=== PATIENT | male | born 1995 | race Hispanic/Latino ===

== ENCOUNTER 2018-03-12 21:33 | Emergency (ER) | payer BC ==
[2018-03-12] MEDS ORDERED: KETOROLAC 30 MG/ML INJ ONE (22:28)
[2018-03-12] MEDS ORDERED: TETANUS & DIPHTHERIA TOX,ADULT 0.5 ML VIAL ONE (22:30)
--- NOTE | 2018-03-12 23:04 | EDPHYS ---
Physician Documentation [facility] Name: Carlos Aguirre Age: 22 yrs Sex: Male : 1995 Arrival Date: 03/12/2018 Time: 21:38 Bed 2 Private MD: ED Physician Rian Douglas HPI: 03/12 22:19 This 22 yrs old Male presents to ER via Ambulatory with complaints of Hand snw Pain. 22:19 The patient or guardian reports pain, swelling, tenderness. The complaints affect the snw dorsal aspect of proximal phalanx of right ring finger, dorsal aspect of proximal phalanx of right little finger and dorsum of right hand, MCP of right ring finger and MCP of right little finger. Context: The problem was sustained outdoors, resulted from using own fist to strike, a wall. Onset: The symptoms/episode began/occurred suddenly, 2 day(s) ago, and became persistent. Associated signs and symptoms: The patient has no apparent associated signs or symptoms. Severity of symptoms: At their worst the symptoms were moderate. The patient has not experienced similar symptoms in the past. The patient has not recently seen a physician. Historical: - Allergies: 21:47 No Known Allergies; aj1 - Home Meds: 21:47 None [Active]; aj1 - PMHx: 21:47 None; aj1 - PSHx: 21:47 None; aj1 - Immunization history:: Flu vaccine is not up to date. - Social history:: Smoking status: Patient uses tobacco products, smokes one pack cigarettes per day. - Ebola Screening: : Patient denies travel to an Ebola-affected area in the 21 days before illness onset. ROS: 22:19 Constitutional: Negative for fever, chills, and weight loss, Eyes: Negative for injury, snw pain, redness, and discharge, ENT: Negative for injury, pain, and discharge, Neck: Negative for injury, pain, and swelling, Cardiovascular: Negative for chest pain, palpitations, and edema, Respiratory: Negative for shortness of breath, cough, wheezing, and pleuritic chest pain, Abdomen/GI: Negative for abdominal pain, nausea, vomiting, diarrhea, and constipation, Back: Negative for injury and pain, : Negative for injury, bleeding, discharge, and swelling, Neuro: Negative for headache, weakness, numbness, tingling, and seizure. 22:19 MS/extremity: Positive for injury or acute deformity, decreased range of motion, pain, swelling, tenderness, of the right hand. 22:19 Skin: Positive for abrasion(s), of the right hand. Exam: 22:18 Constitutional: This is a well developed, well nourished patient who is awake, alert, snw and in no acute distress. Head/Face: Normocephalic, atraumatic. Eyes: Pupils equal round and reactive to light, extra-ocular motions intact. Lids and lashes normal. Conjunctiva and sclera are non-icteric and not injected. Cornea within normal limits. Periorbital areas with no swelling, redness, or edema. ENT: Nares patent. No nasal discharge, no septal abnormalities noted. Tympanic membranes are normal and external auditory canals are clear. Oropharynx with no redness, swelling, or masses, exudates, or evidence of obstruction, uvula midline. Mucous membranes moist. Neck: Trachea midline, no thyromegaly or masses palpated, and no cervical lymphadenopathy. Supple, full range of motion without nuchal rigidity, or vertebral point tenderness. No Meningismus. Chest/axilla: Normal chest wall appearance and motion. Nontender with no deformity. No lesions are appreciated. Cardiovascular: Regular rate and rhythm with a normal S1 and S2. No gallops, murmurs, or rubs. Normal PMI, no JVD. No pulse deficits. Respiratory: Lungs have equal breath sounds bilaterally, clear to auscultation and percussion. No rales, rhonchi or wheezes noted. No increased work of breathing, no retractions or nasal flaring. Abdomen/GI: Soft, non-tender, with normal bowel sounds. No distension or tympany. No guarding or rebound. No evidence of tenderness throughout. Back: No spinal tenderness. No costovertebral tenderness. Full range of motion. Neuro: Awake and alert, GCS 15, oriented to person, place, time, and situation. Cranial nerves II-XII grossly intact. Motor strength 5/5 in all extremities. Sensory grossly intact. Cerebellar exam normal. Normal gait. Psych: Awake, alert, with orientation to person, place and time. Behavior, mood, and affect are within normal limits. 22:18 Skin: Appearance: normal except for affected area, injury, abrasion(s), small abrasion noted, moderate sized abrasion noted, contusion(s), to right hand, pt with palmar abrasions s/p skateboarding, struck wall and has ecchymosis and edema to dorsum of hand. Vital Signs: 21:47 BP 139 / 76; Pulse 84; Resp 18; Temp 98.1; Pulse Ox 98% on R/A; Weight 81.65 kg (R); aj1 Height 6 ft. 0 in. (182.88 cm); Pain 7/10; 23:20 BP 135 / 70; Pulse 80; Resp 16; Pulse Ox 99% on R/A; rr5 21:47 Body Mass Index 24.41 (81.65 kg, 182.88 cm) aj1 Procedures: 23:06 Splinting: Splint applied to right hand using Orthoglass splint, Examined by me, post snw splint application: neurovascular intact, 2+ distal pulses palpable, brisk capillary refill noted, Patient tolerated well. MDM: 22:00 Patient medically screened. snw 23:05 Data reviewed: vital signs, nurses notes. Data interpreted: Pulse oximetry: on room air snw is 98 %. Interpretation: normal. Counseling: I had a detailed discussion with the patient and/or guardian regarding: the historical points, exam findings, and any diagnostic results supporting the discharge/admit diagnosis, the presence of at least one elevated blood pressure reading (>120/80) during this emergency department visit, radiology results, the need for outpatient follow up, to return to the emergency department if symptoms worsen or persist or if there are any questions or concerns that arise at home. Special discussion: I have referred the patient to see his PCP for further evaluation of high blood pressure. Based on the history and exam findings, there is no indication for further emergent testing or inpatient evaluation. I discussed with the patient/guardian the need to see the orthopedic surgeon for further evaluation of the symptoms. I discussed with the patient/guardian the need to see the primary care provider for further evaluation of the symptoms. 03/12 21:58 Order name: Hand Right 3 View XRAY snw 03/12 23:02 Order name: Wound Care; Complete Time: 23:41 snw 03/12 23:02 Order name: Volar Wrist Splint; Complete Time: 23:41 snw 03/12 23:02 Order name: Sling; Complete Time: 23:41 snw Administered Medications: 22:29 Drug: TORadol 60 mg Route: IM; Site: left gluteus; rr5 23:20 Follow up: Response: No adverse reaction rr5 22:30 Drug: Tetanus-Diphtheria Toxoid Adult 0.5 ml {Cash Management Coordinator: [employer]. Exp: rr5 01/13/2020. Lot #: [id number]. } Route: IM; Site: left deltoid; 23:20 Follow up: Response: No adverse reaction rr5 Disposition: 03/13 00:40 Co-signature as Attending Physician, Rian Douglas MD. pkl Disposition: 03/12/18 23:04 Discharged to Home. Impression: Displaced fracture of base of fourth metacarpal bone, right hand, Abrasion of right hand. - Condition is Stable. - Discharge Instructions: Abrasion, Cast or Splint Care, Adult, Metacarpal Fracture, RICE for Routine Care of Injuries, How to Use a Sling. - Prescriptions for Diclofenac Sodium 75 mg Oral Tablet Sustained Release - take 1 tablet by ORAL route 2 times per day; 30 tablet. - Medication Reconciliation Form, Thank You Letter, Antibiotic Education, Prescription Opioid Use form. - Follow up: Quincy Pena MD; When: 1 - 2 days; Reason: Recheck today's complaints, Continuance of care. Signatures: Dispatcher [employer] Zaira Hutchinson, RN RN aj1 Rian Douglas MD MD pkl Kemi Chen, CORRECTIONAL COOK-C CORRECTIONAL COOK-Csnw Crow Shaw RN RN rr5 Corrections: (The following items were deleted from the chart) 03/12 23:42 23:04 03/12/2018 23:04 Discharged to Home. Impression: Displaced fracture of base of rr5 fourth metacarpal bone, right hand; Abrasion of right hand. Condition is Stable. Forms are Medication Reconciliation Form, Thank You Letter, Antibiotic Education, Prescription Opioid Use. Follow up: Dr. Quincy Pena; When: 1 - 2 days; Reason: Recheck today's complaints, Continuance of care. snw
--- NOTE | 2018-03-12 23:04 | ER ---
Nurse's Notes [facility] Name: Carlos Aguirre Age: 22 yrs Sex: Male : 1995 Arrival Date: 03/12/2018 Time: 21:38 Bed 2 Private MD: Diagnosis: Displaced fracture of base of fourth metacarpal bone, right hand;Abrasion of right hand Presentation: 03/12 21:44 Presenting complaint: Patient states: "I hit something and now my hand it really aj1 swollen" Reports pain to right hand for the last 2 days. Transition of care: patient was not received from another setting of care. Onset of symptoms was March 10, 2018. Risk Assessment: Do you want to hurt yourself or someone else? Patient reports no desire to harm self or others. Initial Sepsis Screen: Does the patient meet any 2 criteria? No. Patient's initial sepsis screen is negative. Does the patient have a suspected source of infection? No. Patient's initial sepsis screen is negative. Care prior to arrival: None. 21:44 Method Of Arrival: Ambulatory [facility] 21:44 Acuity: DOROTHY 4 aj1 Triage Assessment: 21:47 General: Appears in no apparent distress. comfortable, Behavior is calm, cooperative, aj1 appropriate for age. Pain: Complains of pain in right hand Pain currently is 7 out of 10 on a pain scale. Neuro: Level of Consciousness is awake, alert, obeys commands. Cardiovascular: Patient's skin is warm and dry. Respiratory: Airway is patent Respiratory effort is even, unlabored, Respiratory pattern is regular, symmetrical. Historical: - Allergies: 21:47 No Known Allergies; aj1 - Home Meds: 21:47 None [Active]; aj1 - PMHx: 21:47 None; aj1 - PSHx: 21:47 None; aj1 - Immunization history:: Flu vaccine is not up to date. - Social history:: Smoking status: Patient uses tobacco products, smokes one pack cigarettes per day. - Ebola Screening: : Patient denies travel to an Ebola-affected area in the 21 days before illness onset. Screenin:57 Abuse screen: Denies threats or abuse. Denies injuries from another. Nutritional rr5 screening: No deficits noted. Tuberculosis screening: No symptoms or risk factors identified. Fall Risk None identified. Assessment: 21:50 General: Appears in no apparent distress. comfortable, Behavior is calm, cooperative, rr5 appropriate for age. Pain: Complains of pain in right hand Pain does not radiate. Pain currently is 7 out of 10 on a pain scale. Quality of pain is described as aching, Pain began 2-3 days ago. Is intermittent, Alleviated by rest, repositioning, Aggravated by increased activity. Neuro: Level of Consciousness is awake, alert, obeys commands, Oriented to person, place, time, situation. Cardiovascular: Capillary refill < 3 seconds Patient's skin is warm and dry. Respiratory: Airway is patent Respiratory effort is even, unlabored, Respiratory pattern is regular, symmetrical. GI: No signs and/or symptoms were reported involving the gastrointestinal system. : No signs and/or symptoms were reported regarding the genitourinary system. EENT: No signs and/or symptoms were reported regarding the EENT system. Derm: Wound noted right hand. Musculoskeletal: Capillary refill < 3 seconds, Range of motion: intact in all extremities, Swelling present in right hand. Vital Signs: 21:47 BP 139 / 76; Pulse 84; Resp 18; Temp 98.1; Pulse Ox 98% on R/A; Weight 81.65 kg (R); aj1 Height 6 ft. 0 in. (182.88 cm); Pain 7/10; 23:20 BP 135 / 70; Pulse 80; Resp 16; Pulse Ox 99% on R/A; rr5 21:47 Body Mass Index 24.41 (81.65 kg, 182.88 cm) aj1 ED Course: 21:38 Patient arrived in ED. am2 21:46 Triage completed. aj1 21:47 Arm band placed on Patient placed in an exam room. aj1 21:50 Patient has correct armband on for positive identification. rr5 21:53 Crow Shaw, ARVIND is Primary Nurse. rr5 21:58 [facility]C [facility] snw 21:58 Rian Douglas MD is Attending Physician. snw 22:35 Hand Right 3 View XRAY In Process Unspecified. EDMS 23:03 Quincy Pena MD is Referral Physician. snw 23:30 Sling applied to right arm. volar wrist splint right. rr5 23:42 Patient did not have IV access during this emergency room visit. rr5 23:45 No provider procedures requiring assistance completed. rr5 Administered Medications: 22:29 Drug: TORadol 60 mg Route: IM; Site: left gluteus; rr5 23:20 Follow up: Response: No adverse reaction rr5 22:30 Drug: Tetanus-Diphtheria Toxoid Adult 0.5 ml {Meter Changes Records Clerk: [employer]. Exp: rr5 01/13/2020. Lot #: [id number]. } Route: IM; Site: left deltoid; 23:20 Follow up: Response: No adverse reaction rr5 Outcome: 23:04 Discharge ordered by . snw 23:35 Condition: stable rr5 23:35 Discharge instructions given to patient, Instructed on discharge instructions, follow up and referral plans. medication usage, Demonstrated understanding of instructions, follow-up care, medications, Prescriptions given X 1. 23:35 Discharged to home ambulatory. rr5 23:42 Patient left the ED. rr5 Signatures: Dispatcher [employer] EDZaira Hinkle RN RN aj1 Kemi Chen, COMMERCIAL CREDIT ANALYST-C COMMERCIAL CREDIT ANALYST-CsnJayda Elias am2 Crow Shaw RN RN rr5
[2018-03-13 01:11] VITALS: BP 139/76; TEMP 98.1; O2SAT 98
--- NOTE | 2018-03-13 08:19 | RAD REPORT ---
EXAM DESCRIPTION: RAD - Hand Right 3 View - 03/12/2018 10:35 pm CLINICAL HISTORY: PAIN Trauma to hand COMPARISON: Hand Right 3 View dated 08/01/2013 FINDINGS: Mildly displaced fracture is present involving the base of the fourth metacarpal. Prominen t soft tissue swelling is seen along the dorsum of the hand. No dislocation evident.
== END 2018-03-12 23:42 | disposition home or self-care (01) ==
LOC: ER 21:33
PROC: 2W3CX1Z Immobilization of Right Lower Arm using Splint (ICD-10-PCS; principal; 2018-03-12)
DX: S62.314A Displaced fracture of base of fourth metacarpal bone, right hand, initial encounter for closed fracture (principal); S60.511A Abrasion of right hand, initial encounter; F17.210 Nicotine dependence, cigarettes, uncomplicated; W22.8XXA Striking against or struck by other objects, initial encounter
CPT/HCPCS: 90714; 96372; 99284